=== PATIENT | female | born 1970 | race Caucasian/White ===

== ENCOUNTER 2016-10-07 21:04 | Emergency (ER) | payer OTHER ==
[~2016-10-07] VITALS: Ht 167.6 cm; Wt 68.0 kg
[~2016-10-07 21:04] MED LIST: ACET-73 PO; IBUP200C5 PO
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
--- NOTE | 2016-10-07 21:19 | NUR ---
DR MENDOZA AT BEDSIDE FOR EVAL.
--- NOTE | 2016-10-07 21:24 | NUR ---
RADIOLOGY AT BEDSIDE FOR CHEST XRAY.
--- NOTE | 2016-10-07 22:18 | NUR ---
Patient discharged to home in stable condition. Written and verbal after care instructions given. Patient verbalizes understanding of instruction.
[2016-10-07 22:20] VITALS: BP 134/86
== END 2016-10-07 22:21 | disposition home or self-care (01) ==
LOC: ER 21:05
DX: R05 Cough (principal); F41.9 Anxiety disorder, unspecified
CPT/HCPCS: 71010-TC; A4606; Z7610

== ENCOUNTER 2017-09-05 17:50 | Emergency (ER) | payer OTHER ==
[~2017-09-05] VITALS: Ht 165.1 cm; Wt 69.4 kg
--- NOTE | 2017-09-05 17:55 | NUR ---
DIZZINESS X 1 HOUR. TOOK AMLODIPINE 2.5 MG X1 HR FIXED [employer]. PT DOESNT NOT TAKE BP MEDS DAILY
[2017-09-05 18:24] VITALS: BP 135/80
--- NOTE | 2017-09-05 18:24 | NUR ---
Patient discharged to home in stable condition. Written and verbal after care instructions given. Patient verbalizes understanding of instruction.
== END 2017-09-05 18:27 | disposition home or self-care (01) ==
LOC: ER 17:51
DX: F41.9 Anxiety disorder, unspecified (principal); I10 Essential (primary) hypertension
CPT/HCPCS: 93005; 99283; A4606; Z7610

== ENCOUNTER 2018-10-02 19:51 | Emergency (ER) | payer OTHER ==
[~2018-10-02] VITALS: Ht 165.1 cm; Wt 64.0 kg
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
[2018-10-02] MEDS ORDERED: ACETAMINOPHEN ES 500 MG TABLET ONE (20:50)
--- NOTE | 2018-10-02 20:55 | NUR ---
BLOOD DRAWN AND GIVEN TO LAB
[2018-10-02 20:56] VITALS: BP 145/89
[2018-10-02] MEDS: IV NS 0.9% 1,000 ML BAG IV ONE (20:56)
[2018-10-02] MEDS: ACETAMINOPHEN ES 500 MG TABLET PO ONE (20:56)
[2018-10-02 21:00] LABS: EOSINOPHILS % (AUTO) 1.8 % (0.0-6.0); HEMATOCRIT 28 % (33-45); HEMOGLOBIN 8.6 g/dL (11.5-14.8); LYMPHOCYTES # (AUTO) 1.1 /CMM (0.8-4.8); LYMPHOCYTES % (AUTO) 30.7 % (20.0-44.0); MEAN CORPUSCULAR HGB CONC 31 g/dl (31.0-36.0); MEAN CORPUSCULAR VOLUME 67 fL (82-100); MONOCYTES # (AUTO) 0.5 /CMM (0.1-1.30); MONOCYTES % (AUTO) 13.4 % (2.0-12.0); NEUTROPHILS # (AUTO) 1.9 /CMM (1.8-8.9); NEUTROPHILS % (AUTO) 53.1 % (43.0-81.0); PLATELET COUNT (AUTO) 248 /CMM (150-450); RED BLOOD CELL COUNT(AUTO) 4.16 MIL/uL (4.0-5.2); WHITE BLOOD COUNT (AUTO) 3.6 K/uL (4.3-11.0)
[2018-10-02 21:17] LABS: ALANINE AMINOTRANSFERASE 29 U/L (12-78); ALBUMIN 3.9 g/dL (3.4-5.0); ALKALINE PHOSPHATASE 61 U/L (46-116); ASPARTATE AMINOTRANSFERASE 28 U/L (15-37); BILIRUBIN,TOTAL 0.2 mg/dL (0.2-1.0); CALCIUM, SERUM 8.3 mg/dL (8.5-10.1); CARBON DIOXIDE 28 mmol/L (21-32); CHLORIDE 103 mmol/L (98-107); CREATININE 0.7 mg/dL (0.6-1.3); GLUCOSE 95 mg/dL (74-106); SODIUM SERUM 139 mmol/L (136-145); TOTAL PROTEIN, SERUM 6.8 g/dL (6.4-8.2); UREA NITROGEN, BLOOD 10 mg/dL (7-18)
[2018-10-02 21:25] LABS: APPEARANCE,URINE Clear (CLEAR); BILIRUBIN,URINE Negative (NEGATIVE); BLOOD, URINE Negative Ery/uL (NEGATIVE); COLOR,URINE Yellow (YELLOW); KETONES,URINE Negative (NEGATIVE); LEUKOCYTE ESTERASE ,URINE Negative (NEGATIVE); NITRITE, URINE Negative (NEGATIVE); PROTEIN,URINE Trace mg/dl (NEGATIVE); UGLUCOSE Negative (NEGATIVE); UROBILINOGEN,URINE 0.2 EU/dL (0.2)
--- NOTE | 2018-10-02 22:35 | NUR ---
IV removed. Catheter intact and site benign. Pressure and 4x4 applied to site. No bleeding noted.Patient discharged to home in stable condition. Written and verbal after care instructions given. Patient verbalizes understanding of instruction. PT AMBULATORY WITH STEADY GAIT.
[2018-10-02 23:10] LABS: EOSINOPHILS % (MANUAL) 1 % (0-4); LYMPHOCYTES % (MANUAL) 37 % (16-48); MONOCYTES % (MANUAL) 9 % (0-11.0); NEUTROPHILS % (MANUAL) 53 (42-76)
[2018-10-02 23:56] LABS: BACTERIA,URINE None seen /HPF (None Seen); MUCUS,URINE Moderate /LPF (None Seen); SQUAMOUS EPITHELIAL CELL,UR Moderate /HPF (None Seen); WBC,URINE 0-2 /HPF (0-3)
== END 2018-10-02 22:56 | disposition home or self-care (01) ==
LOC: ER 20:00
DX: J40 Bronchitis, not specified as acute or chronic (principal); J06.9 Acute upper respiratory infection, unspecified; D64.9 Anemia, unspecified; R19.7 Diarrhea, unspecified; I10 Essential (primary) hypertension; F41.9 Anxiety disorder, unspecified
CPT/HCPCS: 36415; 71045; 80048; 80076; 81001; 83605; 84145; 84484; 85025; 85730; 87040 ×2; 87086; 87804 ×2; 93005; 96360; 99284; J7030; 81000-TC; 87400

== ENCOUNTER 2022-12-27 07:15 | Emergency (ER) | payer MEDICAID, OTHER ==
[~2022-12-27] VITALS: Ht 162.6 cm; Wt 70.3 kg
--- NOTE | 2022-12-27 07:42 | NUR ---
dr lee at bedside for eval
--- NOTE | 2022-12-27 07:53 | NUR ---
ACCUCHECK 97
[2022-12-27] MEDS ORDERED: IV NS 0.9% 1,000 ML BAG IV ONE (08:00)
--- NOTE | 2022-12-27 08:00 | NUR ---
RT AC 20G IV INSERTED ,BLOOD COLLECTED AND SEND TO LAB.
[2022-12-27] MEDS ORDERED: ACETAMINOPHEN ES 500 MG TABLET ONE ×2 (08:03→10:12)
[2022-12-27] MEDS ORDERED: MECLIZINE HCL 25 MG TABLET ONE ×2 (08:03→10:12)
[2022-12-27] MEDS ORDERED: METOCLOPRAMIDE HCL 10 MG/2 ML VIAL ONE ×2 (08:03→10:12)
[2022-12-27 08:11] LABS: BASOPHILS % (AUTO) 0.5 % (0.0-2.0); EOSINOPHILS % (AUTO) 2.9 % (0.0-6.0); HEMATOCRIT 42 % (33-45); HEMOGLOBIN 13.7 g/dL (11.5-14.8); LYMPHOCYTES % (AUTO) 21.5 % (20.0-44.0); MEAN CORPUSCULAR HGB CONC 33 g/dl (31.0-36.0); MEAN CORPUSCULAR VOLUME 89 fL (82-100); MONOCYTES # (AUTO) 0.3 K/uL (0.1-1.30); MONOCYTES % (AUTO) 6.3 % (2.0-12.0); NEUTROPHILS # (AUTO) 3.2 K/uL (1.8-8.9); NEUTROPHILS % (AUTO) 68.8 % (43.0-81.0); PLATELET COUNT (AUTO) 266 K/uL (150-450); RED BLOOD CELL COUNT(AUTO) 4.65 MIL/uL (4.0-5.2); WHITE BLOOD COUNT (AUTO) 4.7 K/uL (4.3-11.0)
[2022-12-27 08:22] LABS: CALCIUM, SERUM 8.8 mg/dL (8.5-10.1); CARBON DIOXIDE 27 mmol/L (21-32); CHLORIDE 107 mmol/L (98-107); CREATININE 0.6 mg/dL (0.6-1.3); GLUCOSE 101 mg/dL (74-106); SODIUM SERUM 144 mmol/L (136-145); UREA NITROGEN, BLOOD 18 mg/dL (7-18)
[2022-12-27] MEDS: METOCLOPRAMIDE HCL 10 MG/2 ML VIAL IV ONE ×2 (08:25→10:15)
[2022-12-27] MEDS: MECLIZINE HCL 12.5 MG TABLET PO ONE ×2 (08:25→10:20)
--- NOTE | 2022-12-27 08:25 | NUR ---
Pt refused REGLAN. ANIVERT AND TYLENOL DR. SEXTON NOTEFED
[2022-12-27] MEDS: ACETAMINOPHEN ES 500 MG TABLET PO ONE ×2 (08:26→10:22)
[2022-12-27 08:28] LABS: ALANINE AMINOTRANSFERASE 24 U/L (12-78); ALBUMIN 3.7 g/dL (3.4-5.0); ALKALINE PHOSPHATASE 84 U/L (46-116); ASPARTATE AMINOTRANSFERASE 19 U/L (15-37); BILIRUBIN,DIRECT 0.1 mg/dL (0.0-0.2); BILIRUBIN,TOTAL 0.5 mg/dL (0.2-1.0); TOTAL PROTEIN, SERUM 7.2 g/dL (6.4-8.2)
[2022-12-27] MEDS ORDERED: IOHEXOL-300 100 ML VIAL IV ONE (08:39)
[2022-12-27] MEDS ORDERED: IV NS 0.9% 250 ML IV ONE (08:39)
--- NOTE | 2022-12-27 08:44 | NUR ---
TO CT SCAN
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
[2022-12-27] MEDS ORDERED: MECL-159 PO (09:59)
[2022-12-27] MEDS ORDERED: METO-295 PO (09:59)
[2022-12-27] MEDS ORDERED: KETOROLAC TROMETHAMINE INJ 30 MG/ML VIAL IV ONE (10:00)
--- NOTE | 2022-12-27 10:01 | NUR ---
ACCUCHECK 63
--- NOTE | 2022-12-27 10:04 | NUR ---
[facility] [phone]
[2022-12-27] MEDS ORDERED: KETOROLAC TROMETHAMINE 15 MG/ML VIAL ONE (10:11)
[2022-12-27 11:19] LABS: BILIRUBIN,URINE NEGATIVE (NEGATIVE); COLOR,URINE YELLOW (YELLOW); LEUKOCYTE ESTERASE ,URINE NEGATIVE (NEGATIVE); NITRITE, URINE NEGATIVE (NEGATIVE); PH,URINE 6.5 (5.0-8.0); PROTEIN,URINE NEGATIVE (NEGATIVE); UGLUCOSE NEGATIVE (NEGATIVE); UROBILINOGEN,URINE 0.2 EU/dL (0.2)
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
--- NOTE | 2022-12-27 12:40 | NUR ---
IV removed. Catheter intact and site benign. Pressure and 4x4 applied to site. No bleeding noted.
--- NOTE | 2022-12-27 12:43 | NUR ---
Patient discharged to home in stable condition. Written and verbal after care instructions given. Patient verbalizes understanding of instruction.
[2022-12-27 12:53] VITALS: BP 125/74; TEMP 98.5; O2SAT 98
== END 2022-12-27 12:53 | disposition home or self-care (01) ==
LOC: ER 07:19
DX: R42 Dizziness and giddiness (principal); R51.9 Headache, unspecified; R11.2 Nausea with vomiting, unspecified; I10 Essential (primary) hypertension; M79.7 Fibromyalgia; F41.9 Anxiety disorder, unspecified
CPT/HCPCS: 99285; 70498; 96374; 71045; 96361; 96375; 93005; 70496; 85025; 80048; 80076; 81003; 36415; 84484; 82962 ×2; 70450; J8597; J2765; J7030; J7050; Q9967; J1885

== ENCOUNTER 2023-06-16 17:19 | Emergency (ER) | payer MEDICAID, OTHER ==
[~2023-06-16] VITALS: Ht 160 cm; Wt 70.8 kg
[~2023-06-16 17:19] MED LIST changes: +MECL-159 PO; +METO-295 PO
[2023-06-16 17:36] VITALS: BP 149/83; TEMP 98.4; O2SAT 99
== END 2023-06-16 19:26 | disposition left against medical advice (07) ==
LOC: ER 17:19
DX: R07.9 Chest pain, unspecified (principal); Z53.21 Procedure and treatment not carried out due to patient leaving prior to being seen by health care provider